=== PATIENT | female | born 2000 | race Caucasian/White ===

== ENCOUNTER 2021-07-07 06:00 | Inpatient (IN) | payer OTHER ==
[2021-07-07] MEDS ORDERED: CEFAZOLIN 2 GM in Premix Bag 1 BAG IVPB SCH (06:04)
[2021-07-07] MEDS ORDERED: Bicitra 30 ML UDCUP PO PRN (06:04)
[2021-07-07] MEDS ORDERED: Promethazine HCl 25 MG/ML VIAL IM PRN ×2 (06:04→09:17)
[2021-07-07] MEDS ORDERED: hydrALAZINE 20 MG/ML VIAL SLOW IVP PRN ×2 (06:04→12:51)
[2021-07-07] MEDS ORDERED: Famotidine/PF 20 mg/2ml Vial SLOW IVP PRN (06:04)
[2021-07-07] MEDS ORDERED: Ondansetron PF 4 MG/2 ML Vial IVP PRN ×3 (06:04→12:51)
[2021-07-07] MEDS: Lactated Ringer's 1,000 ML IV SCH ×2 (06:15→07:16)
[2021-07-07 06:27] LABS: Hemoglobin 10.4 g/dL (12.0-15.5); Mean Corpuscular Hemoglobin 23.2 pg (27.0-33.0); Mean Corpuscular Volume 74.6 fl (81.6-98.3); Mean Platelet Volume 9.3 fl (7.4-10.4); Platelet Count 225 10x3/uL (150-450); RBC Distribution Width 13.2 % (11.5-14.5); Red Blood Cell (RBC) Count 4.49 10x6/uL (3.90-5.03); White Blood Cell (WBC) Count 9.5 10x3/uL (3.5-10.5)
[2021-07-07 06:58] VITALS: BMI 29.2
[2021-07-07 07:02] LABS: HIV (1/2) Antibody/Antigen Non-Reactive (NonReactive); HIV 1/2 INDEX 0.08 S/CO (<1.00); Hep B Surf Ag Non-Reactive S/CO (NonReactive)
[2021-07-07] MEDS ORDERED: Ondansetron PF 4 MG/2 ML Vial ONE (07:03)
[2021-07-07] MEDS ORDERED: Dexamethasone 4 mg/ml Vial ONE (07:03)
[2021-07-07] MEDS ORDERED: Morphine PF 10 MG/10 ML VIAL ONE (07:03)
[2021-07-07] MEDS ORDERED: Ketorolac Tromethamine 30 MG/ML VIAL ONE (07:04)
[2021-07-07] MEDS ORDERED: PHENYLEPHRINE-NS 100 MCG/ML 10 ML SYRINGE ONE (07:04)
[2021-07-07] MEDS ORDERED: Phenylephrine 40 MG/NS 250 ML 250 ML ONE (07:04)
[2021-07-07] MEDS ORDERED: Phenylephrine 10 MG/ML VIAL ONE (07:04)
[2021-07-07] MEDS ORDERED: Oxytocin 10 UNITS/ML VIAL ONE (07:04)
[2021-07-07 07:06] LABS: Syphilis Antibody Nonreactive (Nonreactive); Syphilis Antibody Index 0.04 S/CO (<1.00 Non-Reactive)
[2021-07-07 07:17] LABS: HBSAg Index 0.27 S/CO (0-0.99)
[2021-07-07] MEDS ORDERED: Promethazine HCl 25 MG SUPP PR PRN (09:17)
[2021-07-07] MEDS ORDERED: Ondansetron HCl/PF 4 MG/2 ML Vial IVP PRN (09:17)
[2021-07-07] MEDS ORDERED: diphenhydrAMINE 50 MG/ML VIAL IVP PRN (09:17)
[2021-07-07] MEDS ORDERED: Meperidine HCl/PF 25 MG/ML VIAL SLOW IVP PRN (09:17)
[2021-07-07] MEDS ORDERED: Naloxone HCl 0.4 mg/ml Vial IV PRN (09:17)
[2021-07-07] MEDS ORDERED: Ketorolac Tromethamine 30 MG/ML VIAL IVP PRN (09:17)
[2021-07-07] MEDS ORDERED: Hydrocerin (Eucerin) Cream 120 gm Jar TOP PRN (09:17)
[2021-07-07] MEDS ORDERED: Naloxone HCl 0.4 mg/ml Vial IVP PRN ×2 (09:17)
[2021-07-07] MEDS ORDERED: Fentanyl 100 MCG/2 ML VIAL SLOW IVP PRN (09:17)
[2021-07-07] MEDS ORDERED: Ketorolac Tromethamine 30 MG/ML VIAL IVP SCH (09:30)
[2021-07-07] MEDS ORDERED: Communication Order-Pharmacy FS SCH (09:30)
[2021-07-07] MEDS ORDERED: NS w/ Oxytocin 30 units 500 ML ONE (10:47)
[2021-07-07] MEDS ORDERED: Lanolin Ointment 7 GM TUBE TOP PRN (12:51)
[2021-07-07] MEDS ORDERED: diphenhydrAMINE 25 MG CAP PO PRN (12:51)
[2021-07-07] MEDS ORDERED: Misoprostol 200 MCG TAB PR PRN (12:51)
[2021-07-07] MEDS ORDERED: NS w/ Oxytocin 30 units 500 ML IV SCH (12:51)
[2021-07-07] MEDS ORDERED: Boostrix 0.5 ML (Tdap) VIAL IM ONE (12:51)
[2021-07-07] MEDS ORDERED: Acetaminophen 325 MG TAB PO PRN (12:51)
[2021-07-07] MEDS: Ferrous Sulfate 325 MG TAB PO SCH (21:28)
[2021-07-07] MEDS ORDERED: HYDROcodone/Acetaminophen 5/325 mg Tablet PO PRN (21:30)
[2021-07-07] MEDS: Docusate Calcium (SURFAK) 240 MG CAP PO SCH (22:08)
[2021-07-08 05:22] LABS: Hemoglobin 10.3 g/dL (12.0-15.5); Mean Corpuscular HGB CONC 30.9 g/dL (32.0-36.0); Mean Corpuscular Hemoglobin 23.6 pg (27.0-33.0); Mean Corpuscular Volume 76.2 fl (81.6-98.3); Mean Platelet Volume 9.9 fl (7.4-10.4); Platelet Count 221 10x3/uL (150-450); RBC Distribution Width 13.1 % (11.5-14.5); Red Blood Cell (RBC) Count 4.37 10x6/uL (3.90-5.03); White Blood Cell (WBC) Count 14.6 10x3/uL (3.5-10.5)
[2021-07-08] MEDS: Simethicone Chewable 80 MG TAB PO PRN (09:13)
[2021-07-08] MEDS: Docusate Calcium (SURFAK) 240 MG CAP PO SCH ×2 (09:13→21:36)
[2021-07-08] MEDS: HYDROcodone/Acetaminophen 5/325 mg Tablet PO PRN ×3 (09:13→21:40)
[2021-07-08] MEDS: Prenatal Vitamin 1 TAB PO SCH (09:13)
[2021-07-08] MEDS: Ferrous Sulfate 325 MG TAB PO SCH ×2 (09:15→19:20)
[2021-07-08] MEDS: Ibuprofen 800 MG TAB PO SCH ×2 (14:46→21:36)
[2021-07-09] MEDS: Simethicone Chewable 80 MG TAB PO PRN ×3 (00:06→18:25)
[2021-07-09] MEDS: Ibuprofen 800 MG TAB PO SCH ×2 (05:20→14:17)
[2021-07-09] MEDS: Ferrous Sulfate 325 MG TAB PO SCH (07:40)
[2021-07-09 07:46] VITALS: BP 115/62; TEMP 97.7
[2021-07-09] MEDS: Prenatal Vitamin 1 TAB PO SCH (08:03)
[2021-07-09] MEDS: Docusate Calcium (SURFAK) 240 MG CAP PO SCH (08:03)
[2021-07-09] MEDS: HYDROcodone/Acetaminophen 5/325 mg Tablet PO PRN (18:25)
== END 2021-07-09 18:50 | disposition home or self-care (01) | DRG 786 ==
LOC: CSHLD 06:00 → CSHPP 15:00
PROVIDERS: ADMIT Obstetrics & Gynecology; ATTEND Obstetrics & Gynecology
PROC: 10D00Z1 Extraction of Products of Conception, Low, Open Approach (ICD-10-PCS; principal; 2021-07-06)
DX: O32.1XX0 Maternal care for breech presentation, not applicable or unspecified (principal); O24.02 Pre-existing type 1 diabetes mellitus, in childbirth; Z3A.38 38 weeks gestation of pregnancy; Z37.0 Single live birth; Z96.41 Presence of insulin pump (external) (internal); O99.284 Endocrine, nutritional and metabolic diseases complicating childbirth; E03.9 Hypothyroidism, unspecified; O99.824 Streptococcus B carrier state complicating childbirth; E10.9 Type 1 diabetes mellitus without complications; Z20.822 Contact with and (suspected) exposure to COVID-19; Z79.4 Long term (current) use of insulin; Z79.890 Hormone replacement therapy; Z79.899 Other long term (current) drug therapy
CPT/HCPCS: 36415; 36416; 51701; 51702; 85027; 86780; 86850; 86900; 86901; 87340; 87389; 99285; J0690; J1100; J1885; J2274; J2370; J2405; J2590; J7120; S0028

== ENCOUNTER 2022-11-18 15:58 | Inpatient (IN) | payer OTHER ==
[2022-11-18] MEDS ORDERED: Ondansetron PF 4 MG/2 ML Vial ONE (16:48)
[2022-11-18] MEDS ORDERED: Insulin Regular 300 UNITS/3 ML VIAL ONE (16:48)
[2022-11-18 16:56] LABS: Actual Bicarbonate (HCO3v) 9 mEq/L (22-28); Base Excess -19.4 mEq/L (-2 - +2); Calcium, Ionized (venous) 1.28 mmol/L (1.16-1.32); Chloride (VBG) 103 mmol/L (98-106); Hemoglobin (Hb) 15.6 g/dL (11.7-15.5); Potassium (VBG) 4.83 mmol/L (3.70-5.30); Puncture Site Other Site; RapidComm Collect By LAB; Sodium 139.4 mmol/L (133-146); pH (venous) 7.11 (7.32-7.43)
[2022-11-18 17:05] LABS: #Basophils 0.1 10x3/uL (0.0-0.2); #Monocytes 0.6 10x3/uL (0.0-1.1); #Neutrophils 9.7 10x3/uL (1.5-8.4); %Basophils 0.9 % (0.0-2.0); %Lymphocytes 11.8 % (18.0-47.0); %Monocytes 4.6 % (0.0-10.0); %Neutrophils 81.2 % (40.0-75.0); Hemoglobin 14.4 g/dL (12.0-15.5); Mean Corpuscular HGB CONC 29.6 g/dL (32.0-36.0); Mean Corpuscular Hemoglobin 22.5 pg (27.0-33.0); Mean Platelet Volume 9.3 fl (7.4-10.4); Platelet Count 458 10x3/uL (150-450); RBC Distribution Width 13.6 % (11.5-14.5); Red Blood Cell (RBC) Count 6.41 10x6/uL (3.90-5.03)
[2022-11-18 17:14] LABS: AST (SGOT) 23 U/L (5-34); Albumin 5.3 g/dL (3.5-5.0); Anion Gap 27 mmol/L (10-20); Bilirubin, Total 0.7 mg/dL (0.2-1.2); Calc. Creatinine Clearance 0 mL/min (70-130); Calcium 10.1 mg/dL (7.8-10.44); Chloride 106 mmol/L (98-107); Estimated GFR 75; Globulin 4.2 g/dL (2.4-3.5); Potassium 5.1 mmol/L (3.5-5.1); Protein, Total 9.5 g/dL (6.0-8.3); Sodium 136 mmol/L (136-145)
[2022-11-18 17:22] LABS: Platelet Morphology Comment Appears Adequate; RBC Morphology Normal
[2022-11-18 17:25] LABS: ALT (SGPT) 29 U/L (8-55); Alkaline Phosphatase 120 U/L (40-110); BUN (Urea Nitrogen) 16 mg/dL (7.0-18.7); Glucose 285 mg/dL (70-105)
[2022-11-18] MEDS ORDERED: INSULIN REGULAR IN 0.9 % NACL 100 UNIT/100 ML BAG ONE (17:28)
[2022-11-18 17:31] LABS: Carbon Dioxide Less than 8 mmol/L (22-29)
[2022-11-18] MEDS ORDERED: Electrolyte Replacement Protocol 1 EACH IVPB PRN (17:46)
[2022-11-18] MEDS ORDERED: NS 0.9% w/ 20 MEQ KCL 1,000 ML IV PRN ×2 (17:46)
[2022-11-18] MEDS ORDERED: Dextrose 5 %-0.45 % NaCl 1,000 ML IV PRN (17:46)
[2022-11-18] MEDS ORDERED: Dextrose 50% Abboject 50 ML SYRINGE SLOW IVP PRN (17:46)
[2022-11-18] MEDS ORDERED: Sodium Chloride 0.9% 1,000 ML IV PRN ×4 (17:46)
[2022-11-18] MEDS ORDERED: Calcium Carbonate 500 MG ChewTAB PO PRN (17:48)
[2022-11-18] MEDS ORDERED: Ondansetron ODT 4 MG TAB PO PRN (17:48)
[2022-11-18] MEDS ORDERED: Ondansetron PF 4 MG/2 ML Vial IVP PRN (17:48)
[2022-11-18] MEDS ORDERED: Acetaminophen 325 MG TAB PO PRN (17:48)
[2022-11-18] MEDS ORDERED: Senokot S 8.6-50 MG TAB PO PRN (17:48)
[2022-11-18] MEDS ORDERED: INSULIN REGULAR IN 0.9 % NACL 100 UNIT in Premix Bag 1 BAG IVPB SCH (18:00)
[2022-11-18 18:06] LABS: Phosphorus 4.7 mg/dL (2.3-4.7)
[2022-11-18 18:07] LABS: Bilirubin Neg (Negative); Blood, Urine 10 (Negative); Clarity Clear (Clear); Glucose, Urine (Dipstick) >=1000 mg/dL (Negative); Ketone, Urine 150 mg/dL (Negative); Leukocyte Negative (Negative); Nitrite Negative (Negative); Protein, Urine (Dipstick) 30 mg/dl (Neg-Trace); Specific Gravity, Urine 1.025 (1.005-1.030); Urobilinogen Normal mg/dL (Less than 2)
[2022-11-18 18:20] LABS: Bacteria/HPF None Seen HPF (None Seen); RBC/HPF 0-3 HPF (0-3); Squamous Epithelial 0-3 HPF (0-3); Yeast-Budding 1+ HPF (None Seen)
[2022-11-18 18:47] LABS: SARS-CoV-2 NAA Rapid Test Not Detected (NotDetected)
[2022-11-18 19:14] LABS: Pregnancy Test - Urine (BHCG) Negative (Negative); Pregu Control Background? CLEAR/WHITE (CLR/WHITE); Pregu Control Bar Appear? YES (CONTROL BAR); Specific Gravity 1.025 (1.002-1.036)
[2022-11-18 19:25] VITALS: BMI 23.6
[2022-11-18] MEDS ORDERED: Magnesium 2 GM/50 ML(in water) 2 GM in Premix Bag 1 BAG IVPB SCH (19:30)
[2022-11-18 20:26] LABS: Anion Gap 18 mmol/L (10-20); BUN (Urea Nitrogen) 13 mg/dL (7.0-18.7); Calc. Creatinine Clearance 109 mL/min (70-130); Calcium 8.4 mg/dL (7.8-10.44); Carbon Dioxide 9 mmol/L (22-29); Chloride 112 mmol/L (98-107); Estimated GFR 108; Glucose 146 mg/dL (70-105); Potassium 4.2 mmol/L (3.5-5.1); Sodium 135 mmol/L (136-145)
[2022-11-18] MEDS: Famotidine 20 MG TAB PO SCH (20:36)
[2022-11-18] MEDS ORDERED: Heparin 5,000 UNITS/ML VIAL SC SCH (21:00)
[2022-11-19 01:00] LABS: Anion Gap 15 mmol/L (10-20); BUN (Urea Nitrogen) 9 mg/dL (7.0-18.7); Calc. Creatinine Clearance 109 mL/min (70-130); Chloride 113 mmol/L (98-107); Estimated GFR 108; Glucose 277 mg/dL (70-105); Potassium 4.1 mmol/L (3.5-5.1); Sodium 133 mmol/L (136-145)
[2022-11-19] MEDS: D5 1/2 NS w/20 mEq KCL 1,000 ML IV PRN ×2 (01:07→06:54)
[2022-11-19 01:08] LABS: Carbon Dioxide 9 mmol/L (22-29)
[2022-11-19 04:21] LABS: #Basophils 0.1 10x3/uL (0.0-0.2); #Eosinphils 0.1 10x3/uL (0.0-0.5); #Monocytes 1.1 10x3/uL (0.0-1.1); #Neutrophils 6.7 10x3/uL (1.5-8.4); %Basophils 0.7 % (0.0-2.0); %Eosinophils 0.7 % (0.0-6.0); %Lymphocytes 29.3 % (18.0-47.0); %Monocytes 9.5 % (0.0-10.0); Hemoglobin 11.3 g/dL (12.0-15.5); Mean Corpuscular HGB CONC 30.5 g/dL (32.0-36.0); Mean Corpuscular Hemoglobin 22.6 pg (27.0-33.0); Mean Corpuscular Volume 74.2 fl (81.6-98.3); Mean Platelet Volume 9.6 fl (7.4-10.4); Platelet Count 350 10x3/uL (150-450); RBC Distribution Width 13.4 % (11.5-14.5); White Blood Cell (WBC) Count 11.3 10x3/uL (3.5-10.5)
[2022-11-19 04:28] LABS: Anion Gap 11 mmol/L (10-20); BUN (Urea Nitrogen) 9 mg/dL (7.0-18.7); Calc. Creatinine Clearance 118 mL/min (70-130); Calcium 8.1 mg/dL (7.8-10.44); Carbon Dioxide 14 mmol/L (22-29); Chloride 114 mmol/L (98-107); Estimated GFR 118; Glucose 223 mg/dL (70-105); Magnesium 1.7 mg/dL (1.6-2.6); Phosphorus 2.2 mg/dL (2.3-4.7); Potassium 4.1 mmol/L (3.5-5.1); Sodium 135 mmol/L (136-145)
[2022-11-19] MEDS ORDERED: Magnesium 2 GM/50 ML(in water) 2 GM in Premix Bag 1 BAG IVPB SCH (06:00)
[2022-11-19] MEDS ORDERED: HumaLOG 300 UNITS/3 ML VIAL SC PRN ×2 (08:15)
[2022-11-19] MEDS ORDERED: Dextrose 5% in Water 1,000 ML IV PRN (08:15)
[2022-11-19] MEDS: Famotidine 20 MG TAB PO SCH (08:16)
[2022-11-19] MEDS ORDERED: Potassium Phosphate 15 MMOL in Sodium Chloride 0.9% 100 ML IVPB SCH (09:00)
[2022-11-19] MEDS ORDERED: Lantus 1000 UNITS/10 ML VIAL SC SCH ×2 (09:00→15:00)
[2022-11-19] MEDS ORDERED: 1/2 NS w/KCL 20 mEq 1,000 ML IV SCH (09:30)
[2022-11-19 14:38] LABS: Anion Gap 12 mmol/L (10-20); BUN (Urea Nitrogen) 8 mg/dL (7.0-18.7); Calc. Creatinine Clearance 113 mL/min (70-130); Calcium 8.5 mg/dL (7.8-10.44); Carbon Dioxide 17 mmol/L (22-29); Chloride 110 mmol/L (98-107); Estimated GFR 113; Glucose 379 mg/dL (70-105); Phosphorus 1.8 mg/dL (2.3-4.7); Potassium 3.9 mmol/L (3.5-5.1); Sodium 135 mmol/L (136-145)
[2022-11-19] MEDS ORDERED: K-Phos Neutral 250 MG TAB PO SCH (14:45)
[2022-11-19 16:58] LABS: Hemoglobin A1c 11.4 % (4.0-6.0)
== END 2022-11-19 16:15 | disposition home or self-care (01) | DRG 638 ==
LOC: CSHERS 15:58 → CSHIMCU 17:46
PROVIDERS: ADMIT Internal Medicine; ATTEND Internal Medicine
DX: E10.10 Type 1 diabetes mellitus with ketoacidosis without coma (principal); E87.1 Hypo-osmolality and hyponatremia; Z96.41 Presence of insulin pump (external) (internal); E86.0 Dehydration; E83.39 Other disorders of phosphorus metabolism; E83.42 Hypomagnesemia; D53.9 Nutritional anemia, unspecified; Z20.822 Contact with and (suspected) exposure to COVID-19; Z98.890 Other specified postprocedural states; Z83.3 Family history of diabetes mellitus
CPT/HCPCS: 36415; 36416; 80048; 80053; 81003; 81015; 81025; 82010; 82805; 83036; 83735; 83930; 84100; 85025; 94760; 96361; 96365; 96375; 96376; J1815; J2405; J3475; J3480; J3490; U0002